=== PATIENT | female | born 1970 | race Caucasian/White ===

== ENCOUNTER 2019-02-07 13:16 | Emergency (ER) | payer MEDICAID ==
[~2019-02-07] VITALS: Ht 160 cm; Wt 100.0 kg
[~2019-02-07 13:16] MED LIST: ACET-2119 PO; IBUP-1984 PO
[2019-02-07 13:32] VITALS: BP 150/75
[2019-02-07] MEDS ORDERED: TRAM50TA2 PO (13:58)
[2019-02-07] MEDS ORDERED: ERYT1OIN6 RIGHTEYE (13:58)
[2019-02-07] MEDS ORDERED: TETRACAINE 0.5% 5 ML OPHTHALMIC DROPS RIGHTEYE ONE ×2 (14:05)
[2019-02-07] MEDS ORDERED: erythromycin ophthalmic ointment 1gm tube RIGHTEYE ONE ×2 (14:05)
== END 2019-02-07 15:02 | disposition home or self-care (01) ==
LOC: ER 13:16
DX: S05.01XA Injury of conjunctiva and corneal abrasion without foreign body, right eye, initial encounter (principal); J45.909 Unspecified asthma, uncomplicated; Z90.49 Acquired absence of other specified parts of digestive tract; Z79.899 Other long term (current) drug therapy; W55.03XA Scratched by cat, initial encounter; Y93.89 Activity, other specified; Y92.89 Other specified places as the place of occurrence of the external cause; Y99.8 Other external cause status
CPT/HCPCS: 99283

== ENCOUNTER 2020-04-13 20:45 | Emergency (ER) | payer MEDICAID ==
[~2020-04-13] VITALS: Ht 160 cm; Wt 109.0 kg
[2020-04-13 21:20] LABS: BASOPHILS % (AUTO) 0.4 % (0-1); EOSINOPHILS # (AUTO) 0.2 X10'3 (0-0.9); HEMATOCRIT 38.5 % (35.0-45.0); HEMOGLOBIN 12.9 g/dl (12.0-16.0); LYMPHOCYTES # (AUTO) 1.9 X10'3 (1.1-4.8); LYMPHOCYTES % (AUTO) 34.5 % (21-51); MEAN CORPUSCULAR HEMOGLOBIN 32.4 PG (27.0-31.0); MEAN CORPUSCULAR HGB CONC 33.6 g/dL (33.0-36.5); MEAN CORPUSCULAR VOLUME 96.3 FL (78-98); MEAN PLATELET VOLUME 7.6 FL (7.4-10.4); MONOCYTES # (AUTO) 0.4 X10'3 (0-0.9); MONOCYTES % (AUTO) 6.9 % (2-12); NEUTROPHILS # (AUTO) 3.1 X10'3 (1.8-7.7); NEUTROPHILS % (AUTO) 55.2 % (42-75); PLATELET COUNT 256 X10'3 (140-440); RED CELL DISTRIBUTION WIDTH 13.4 % (11.5-14.5); WHITE BLOOD COUNT 5.5 X10'3 (4.5-11.0)
[2020-04-13 21:34] LABS: ALANINE AMINOTRANSFERASE 26 U/L (12-78); ALBUMIN 3.4 G/DL (3.4-5.0); ALBUMIN/GLOBULIN RATIO 0.9 (1.1-1.5); ALKALINE PHOSPHATASE 80 IU/L (46-116); ANION GAP 9 (8-16); ASPARTATE AMINO TRANSFERASE 18 U/L (10-37); BILIRUBIN,TOTAL 0.2 MG/DL (0.1-1.0); BLOOD UREA NITROGEN 17 MG/DL (7-18); BUN/CREATININE RATIO 18.7 (6.6-38.0); CALCIUM 8.6 MG/DL (8.5-10.1); CHLORIDE 108 MMOL/L (99-107); CREATININE 0.91 MG/DL (0.40-0.90); GLUCOSE 124 MG/DL (70-104); POTASSIUM 3.7 MMOL/L (3.5-5.1); SODIUM 145 MMOL/L (135-145); TOTAL CARBON DIOXIDE 28.5 MMOL/L (24-32); TOTAL PROTEIN 7.1 G/DL (6.4-8.2); eGFR 65 ML/MIN
[2020-04-13 23:11] VITALS: BP 125/64
== END 2020-04-13 23:05 | disposition home or self-care (01) ==
LOC: ER 20:46
DX: R07.89 Other chest pain (principal); M54.2 Cervicalgia; I25.10 Atherosclerotic heart disease of native coronary artery without angina pectoris; J45.909 Unspecified asthma, uncomplicated; Z90.49 Acquired absence of other specified parts of digestive tract; Z79.899 Other long term (current) drug therapy
CPT/HCPCS: 36415; 71045; 80053; 84484; 85025; 93005; 99285

== ENCOUNTER 2020-12-05 18:45 | Emergency (ER) | payer MEDICAID ==
[~2020-12-05] VITALS: Ht 160 cm; Wt 104.5 kg
[2020-12-05 18:50] VITALS: BP 143/66
== END 2020-12-05 21:02 | disposition left against medical advice (07) ==
LOC: ER 18:45
DX: R03.0 Elevated blood-pressure reading, without diagnosis of hypertension (principal); Z53.21 Procedure and treatment not carried out due to patient leaving prior to being seen by health care provider
CPT/HCPCS: 93005

== ENCOUNTER 2022-03-28 21:58 | Emergency (ER) | payer MEDICAID ==
[~2022-03-28] VITALS: Ht 160 cm; Wt 114.0 kg
[2022-03-28 22:28] VITALS: BP 148/71
[2022-03-28] MEDS ORDERED: TETanus/Pertussis (Acell)/Diphther VAC/PF (Tdap-Adult) 0.5ml syringe IMVAC ONE (22:40)
[2022-03-28] MEDS ORDERED: ibuprofen tablet 400 MG TABLET PO ONE (22:40)
[2022-03-28] MEDS ORDERED: amox tr/potassium clavulanate 875/125mg TAB PO ONE (22:40)
[2022-03-28] MEDS ORDERED: AMOX-117 PO (23:43)
--- NOTE | 2022-03-29 00:26 | NUR ---
BITE REPORT FAXED TO [facility] FOR [facility]
== END 2022-03-28 23:50 | disposition home or self-care (01) ==
LOC: ER 21:59
DX: S50.871A Other superficial bite of right forearm, initial encounter (principal); J45.909 Unspecified asthma, uncomplicated; I51.9 Heart disease, unspecified; W54.0XXA Bitten by dog, initial encounter; Y93.89 Activity, other specified; Y92.89 Other specified places as the place of occurrence of the external cause; Y99.8 Other external cause status
CPT/HCPCS: 90471; 90715; 99283; A6449

== ENCOUNTER 2022-06-04 12:07 | Emergency (ER) | payer MEDICAID ==
[~2022-06-04] VITALS: Ht 160 cm; Wt 111.4 kg
[2022-06-04 12:15] VITALS: BP 157/82
[2022-06-04] MEDS ORDERED: IBUP-1986 PO (13:43)
== END 2022-06-04 13:55 | disposition home or self-care (01) ==
LOC: ER 12:09
DX: S80.12XA Contusion of left lower leg, initial encounter (principal); M79.605 Pain in left leg; I25.10 Atherosclerotic heart disease of native coronary artery without angina pectoris; J45.909 Unspecified asthma, uncomplicated; Z90.49 Acquired absence of other specified parts of digestive tract; Z79.899 Other long term (current) drug therapy; X58.XXXA Exposure to other specified factors, initial encounter; Y93.89 Activity, other specified; Y92.89 Other specified places as the place of occurrence of the external cause; Y99.8 Other external cause status
CPT/HCPCS: 73590; 99283

== ENCOUNTER 2022-08-17 21:50 | Emergency (ER) | payer MEDICAID ==
[~2022-08-17] VITALS: Ht 160 cm; Wt 109.6 kg
[~2022-08-17 21:50] MED LIST changes: +IBUP-1986 PO
[2022-08-17] MEDS ORDERED: sulfamethoxazole/trimethoprim DS (800/160mg) tablet PO ONE (22:30)
[2022-08-17] MEDS ORDERED: proparacaine 0.5% ophthalmic drops 15ml EACHEYE ONE (22:30)
[2022-08-17] MEDS ORDERED: cephalexin 500mg capsule PO ONE (22:30)
[2022-08-17] MEDS ORDERED: CEPH500C82 PO (23:19)
[2022-08-17] MEDS ORDERED: SULF1TAB49 PO (23:19)
== END 2022-08-17 23:46 | disposition home or self-care (01) ==
LOC: ER 21:50
DX: H00.032 Abscess of right lower eyelid (principal); J45.909 Unspecified asthma, uncomplicated; I51.9 Heart disease, unspecified; Z90.49 Acquired absence of other specified parts of digestive tract; Z88.8 Allergy status to other drugs, medicaments and biological substances; Z79.1 Long term (current) use of non-steroidal anti-inflammatories (NSAID); Z79.2 Long term (current) use of antibiotics; Z79.899 Other long term (current) drug therapy
CPT/HCPCS: 99284

== ENCOUNTER 2024-05-06 08:37 | Outpatient (CLI) | payer MEDICAID | END 2024-05-06 23:59 | disposition home or self-care (01) | LOC: RAD 08:37 | PROVIDERS: ATTEND Pediatrics | DX: R32 Unspecified urinary incontinence (principal); N28.89 Other specified disorders of kidney and ureter | CPT/HCPCS: 76705 ==

== ENCOUNTER 2024-06-11 05:49 | Emergency (ER) | payer MEDICAID ==
[~2024-06-11] VITALS: Ht 160 cm; Wt 117.6 kg
[2024-06-11 07:34] VITALS: TEMP 98.1
[2024-06-11] MEDS ORDERED: CEPH250T PO (08:05)
[2024-06-11] MEDS: cephalexin 250mg capsule PO ONE (08:29)
[2024-06-11 08:30] VITALS: BP 153/78; PULSE 82; RESP 18; O2SAT 99
== END 2024-06-11 08:31 | disposition home or self-care (01) ==
LOC: ER 05:49
DX: L03.221 Cellulitis of neck (principal); I25.10 Atherosclerotic heart disease of native coronary artery without angina pectoris; J45.909 Unspecified asthma, uncomplicated; Z79.1 Long term (current) use of non-steroidal anti-inflammatories (NSAID); Z79.2 Long term (current) use of antibiotics; Z90.49 Acquired absence of other specified parts of digestive tract
CPT/HCPCS: 99283

== ENCOUNTER 2025-06-18 09:48 | Emergency (ER) | payer MEDICAID ==
[~2025-06-18] VITALS: Ht 160 cm; Wt 113.6 kg
[2025-06-18 10:00] VITALS: BP 152/83; PULSE 60; O2SAT 99
[2025-06-18] MEDS ORDERED: BACL5TAB PO (11:40)
--- NOTE | 2025-06-18 11:40 | Physician Documentation ---
History of Present Illness ~ Chief Complaint: Back Pain Stated Complaint: BACK PAIN Time Seen by MD: 11:34 Primary Medical Doctor: Nate Figueredo Source: patient Mode of Arrival: POV Exam Limitations: no limitations HPI Patient presents secondary to lower back pain. History of left hip pain/previous injury. Pain is located around her left lower back. No significant radiation/radiculopathy symptoms. She states that she was getting dressed and felt a clunk. She tried rest, ice and Alieve but continues to have significant lower back pain. No incontinence. No paresthesias. Was asked, but otherwise denies review of systems. Medication Reconciliation Allergies: Uncoded Allergies: PRODUCE (Allergy, Mild, RASH, BLISTERS, 11/24/15) NOT A PROBLM IF COOKED NKDA (Allergy, Unknown, 12/05/20) Scheduled Acetaminophen (Tylenol), 1 TABLET PO Q4HPRN, (Reported) Ibuprofen (Ibuprofen), 1 TAB PO Q8H Scheduled PRN Baclofen (Baclofen), 5 MG PO Q8H PRN for muscle spasms Ibuprofen* (Motrin*), 800 MG PO Q6H PRN for pain, (Reported) Past Medical History Past Medical History: *CARDIOVASCULAR* (Bradycardia status post permanent pacemaker), Asthma Past Surgical History: cholecystectomy, pacemaker Smoking Status: Unknown if ever smoked Alcohol Use: None Drug Use: none Lives In: Home Additional Comment No current tobacco. Review of Systems ROS Patient complains of left lateral lower back pain. Otherwise, denies review of systems. Physical Exam Physical Exam Vital Signs: Temperature: 97.4, Source: Temporal, Heart Rate: 60, Respiratory Rate: 15, BP: 152/83, Pulse Oximetry: 99, Weight: 113.640 Pulse Oximetry Reflects: adequate oxygenation General Appearance: alert, WD/WN Neck: non-tender, full range of motion Respiratory: lungs clear Chest: no accessory muscle use Cardiovascular: regular rate, rhythm Rectal: deferred BacK: normal inspection, no CVA tenderness, no vertebral tenderness Back There is pain with palpation over the left lower back. No spinal tenderness or step-off. No swelling. Sensory/Motor: sensation grossly intact Progress Results/Orders Results/Orders Completed Orders - EDYTA RICCI NP Ketorolac Trometh 15mg/Ml Vial (Toradol (06/18/25 11:45) Medications Received in ER Medications (Trade) Dose Ordered Sig/Juice Route PRN Reason Start Time Stop Time Status Last Admin Dose Admin (Toradol injection) 15 mg ONCE ONCE IM 06/18/25 11:45 06/18/25 11:46 DC 06/18/25 11:45 15 MG Vital Signs 06/18/25 06/18/25 06/18/25 10:00 11:45 12:41 Temp 97.4 97.4 Pulse 60 Resp 15 14 B/P (MAP) 152/83 Pulse Ox 99 Medical Decision Making Findings Patient presents secondary to lower back pain. She denies radiculopathy symptoms. There is no incontinence, paresthesias. No evidence of acute neurologic emergency. Pain is on the left lateral back and there is no spinal point tenderness. Suspect underlying muscle spasm at this time. She was treated with Toradol and reported improvement in pain. She is ambulatory during examined ambulated out of the hospital. Given prescription for baclofen. Encouraged rest, gentle stretching. Encouraged ice/heat for pain. Departure Time of Disposition: 11:36 Impression: Primary Impression: Low back pain Qualified Codes: M54.50 - Low back pain, unspecified Additional Impression: Back spasm Condition: Stable Discharge Instructions: Back Exercises Additional Instructions: You may take [id number]-lpt-[id number] ibuprofen/Tylenol for pain. Recommend ice/heat. Recommend gentle stretching. May take baclofen, MS relaxer as needed. Do not take while driving. Your blood pressure is was greater than 130/80. Recommend that he follow up with your primary care provider. Referrals: NO PRIMARY CARE PROVIDER (PCP) Prescriptions Baclofen (Baclofen) 5 Mg Tablet 5 MG PO Q8H PRN for muscle spasms, #15 TAB Prov: EDYTA RICCI NP 06/18/25 Education Educated: Patient Educated regarding: diagnosis, treatment, need for follow up Signature Scribe Signature: no scribe Attestation: The note accurately reflects work and decisions made by me.Edyta Ricci - NARENDRA 06/18/25 19:46 This note was created with the assistance of voice recognition software whereby errors in grammar, syntax, and/or spelling may have occurred despite active proofreading efforts by the author. Please do not hesitate to contact the provider for clarification or for questions regarding the content of this document. EDYTA RICCI NP Jun 18, 2025 11:40
[2025-06-18 11:45] VITALS: RESP 14
[2025-06-18] MEDS: ketorolac trometh 15mg/ml vial 15 MG/ML ML IM ONE (11:45)
[2025-06-18 12:41] VITALS: TEMP 97.4
== END 2025-06-18 12:42 | disposition home or self-care (01) ==
LOC: ER 09:48
DX: M54.50 Low back pain, unspecified (principal); J45.909 Unspecified asthma, uncomplicated; Z90.49 Acquired absence of other specified parts of digestive tract; Z95.0 Presence of cardiac pacemaker; Z79.899 Other long term (current) drug therapy
CPT/HCPCS: 96372; 99283; J1885